=== PATIENT | male | born 1945 | race Caucasian/White ===

== ENCOUNTER 2016-11-17 11:31 | Emergency (ER) | payer OTHER, BC ==
[~2016-11-17] VITALS: Ht 167.6 cm; Wt 74.1 kg
[2016-11-17] MEDS ORDERED: NAPROSYN500 MG PO (13:46)
[2016-11-17] MEDS ORDERED: NORCO 5/3251 TABLET PO (13:46)
[2016-11-17 14:25] VITALS: BP 139/81
== END 2016-11-17 14:25 | disposition home or self-care (01) ==
LOC: EME 11:31
DX: M54.41 Lumbago with sciatica, right side (principal)
CPT/HCPCS: 99281; 99284; J3010